=== PATIENT | female | born 2000 | race Caucasian/White ===

== ENCOUNTER → 2018-12-26 | Outpatient (CLI) | payer BC ==
[2018-12-27 14:38] LABS: STOOL FOR OCCULT BLOOD NEGATIVE (NEGATIVE)
== END ==
LOC: COL.LAB 19:49
PROVIDERS: Physician Assistant
DX: A09 Infectious gastroenteritis and colitis, unspecified (principal)

== ENCOUNTER → 2019-01-18 | Outpatient (CLI) | payer BC | LOC: COL.LAB 11:58 | DX: R19.7 Diarrhea, unspecified (principal) ==

== ENCOUNTER 2019-01-23 05:43 | Day surgery (SDC) | payer BC ==
[~2019-01-23] VITALS: Ht 170.2 cm; Wt 70.5 kg
[2019-01-23] MEDS ORDERED: ONE DAILY MULTI1 TA1 PO (06:33)
[2019-01-23] MEDS ORDERED: SPRINTEC 35 MCG1 TAB PO (06:33)
[2019-01-23 06:39] VITALS: BP 124/77; PULSE 83; TEMP 98.4
[2019-01-23 07:50] VITALS: BP 107/65; PULSE 72; TEMP 97.8
--- NOTE | 2019-01-23 07:50 | NUR ---
Patient brought back to [facility] [address] via cart. Ambulated to chair with 2 assist. Placed on monitors, vital signs stable. Pt denies pain or nauesea, remains very sleepy. Responding appropriately to verbal stimuli. Mother at bedside. Report recieved from Rafa BILLINGSLEY. Pt requesitng water at this time. Dr. Glasgow at bedside to discuss results.
[2019-01-23 08:05] VITALS: BP 96/57; PULSE 72
--- NOTE | 2019-01-23 08:05 | NUR ---
Patient states she is feeling slightly better. Requesting muffin and apple juice. Vital signs stable. Will continue to monitor.
[2019-01-23 08:20] VITALS: BP 104/57; PULSE 87
--- NOTE | 2019-01-23 08:20 | NUR ---
Patient tolerating food and drink without difficulty. Vital signs stable. Will continue to monitor.
[2019-01-23 08:35] VITALS: BP 100/60; PULSE 72
--- NOTE | 2019-01-23 08:35 | NUR ---
Patient state she is still feeling tired. Denies pain or nausea. Requsting pudding at this time. Tolerating without difficulty. Will continue to monitor.
[2019-01-23 09:05] VITALS: BP 105/88; PULSE 79
--- NOTE | 2019-01-23 09:05 | NUR ---
Patient states she feels ready to go home now. Food and drink tolerated well. Will continue to monitor.
--- NOTE | 2019-01-23 09:28 | NUR ---
Discharge instructions reviewed with patient and mother, all questions answered. Pt brought down to lobby via wheel chair. To be driven home by mother.
== END 2019-01-23 09:28 | disposition home or self-care (01) ==
LOC: SDCO 05:43
PROVIDERS: Internal Medicine Gastroenterology
DX: K52.89 Other specified noninfective gastroenteritis and colitis (principal); F41.9 Anxiety disorder, unspecified; K59.00 Constipation, unspecified; K92.1 Melena; K64.4 Residual hemorrhoidal skin tags; K62.89 Other specified diseases of anus and rectum; Z79.52 Long term (current) use of systemic steroids
CPT/HCPCS: J2250; J2405; J3010; J7030